=== PATIENT | female | born 1950 | race Caucasian/White ===

== ENCOUNTER 2017-03-23 05:21 | Inpatient (IN) ==
[2017-03-23] MEDS ORDERED: VANCOMYCIN INJ 1,000 MG in SODIUM CHLORIDE 0.9% 250 ML IV ONE (06:00)
[2017-03-23] MEDS ORDERED: VANCOMYCIN 1,000 MG VIAL ONE (06:25)
[2017-03-23] MEDS ORDERED: SODIUM CHLORIDE 0.9% 100 ML IV ONE ×2 (06:25→08:54)
[2017-03-23] MEDS ORDERED: ceFAZolin 1,000 MG VIAL ONE (06:25)
[2017-03-23] MEDS ORDERED: TRANEXAMIC ACID 1,000 MG/10 ML VIAL IV ONE (06:28)
[2017-03-23] MEDS: LACTATED RINGERS 1,000 ML IV SCH ×2 (06:30→21:25)
[2017-03-23] MEDS ORDERED: FAMOTIDINE 20 MG TABLET PO ONE (06:35)
[2017-03-23] MEDS ORDERED: LORazepam 1 MG TABLET PO ONE (06:35)
--- NOTE | 2017-03-23 06:51 | History and Physical Update ---
History and Physical Update - History and Physical H&P was reviewed, the patient examined and there: are no changes in the patients condition since last H&P was completed.
[2017-03-23] MEDS ORDERED: MORPHINE 10 MG/10 ML VIAL ONE (07:00)
[2017-03-23] MEDS ORDERED: diphenhydrAMINE 50 MG/1 ML VIAL IV PRN (07:56)
[2017-03-23] MEDS ORDERED: hydrOXYzine HCL 25 MG/1 ML VIAL IM PRN (07:56)
[2017-03-23] MEDS ORDERED: ONDANSETRON 4 MG/2 ML VIAL IV PRN (07:56)
[2017-03-23] MEDS ORDERED: HYDROmorphone 2 MG/1 ML VIAL IV PRN (07:56)
[2017-03-23] MEDS ORDERED: NALOXONE 0.4 MG/ML VIAL IV PRN (08:35)
[2017-03-23] MEDS ORDERED: LACTULOSE 20 GM/30 ML UDCUP PO PRN (08:35)
[2017-03-23] MEDS ORDERED: BISACODYL 10 MG SUPP RECTAL PRN (08:35)
[2017-03-23] MEDS ORDERED: diphenhydrAMINE CAP 25 MG CAPSULE PO PRN (08:35)
[2017-03-23] MEDS ORDERED: PROMETHAZINE 25 MG/1 ML VIAL IM PRN (08:35)
--- NOTE | 2017-03-23 08:48 | Anesthesia Post-Op ---
Anesthesia Post OP - Post Ansesthetic Evaluation Patient seen in post op: Yes Resp: within normal limits CV: within normal limits Mental: within normal limits Temp: within normal limits [id number]: within normal limits Nausea and Vomiting: within normal limits Pain: within normal limits
[2017-03-23] MEDS ORDERED: fentaNYL 100 MCG/2 ML VIAL ONE (08:52)
[2017-03-23] MEDS ORDERED: MIDAZOLAM 2 MG/2 ML VIAL ONE (08:53)
[2017-03-23] MEDS ORDERED: KETAMINE 500 MG/10 ML VIAL ONE (08:53)
[2017-03-23] MEDS ORDERED: LACTATED RINGERS 1,000 ML IV ONE (08:54)
--- NOTE | 2017-03-23 08:56 | XRay Report ---
XR hip OR LT Indication: Hip arthroplasty Comparison: None available Findings: Left hip arthroplasty has been performed and appears in good position 4 single view. No periprosthetic fracture is seen. Impression: Expected postoperative appearance of the left hip. PROCEDURE INTERPRETED AT [facility] DEPARTMENT OF RADIOLOGY Final Report Signed by: Dr. Thad Bedoya
[2017-03-23] MEDS ORDERED: HYDROmorphone PCA 30 MG/30 ML SYRINGE IV SCH (09:00)
[2017-03-23] MEDS: DOCUSATE SODIUM 100 MG CAPSULE PO SCH ×2 (09:00→21:24)
[2017-03-23] MEDS ORDERED: PROPOFOL 200 MG/20 ML VIAL IV ONE (09:00)
[2017-03-23] MEDS ORDERED: LABETALOL 100 MG/20 ML VIAL IV ONE (09:00)
[2017-03-23 09:01] LABS: Apearance,Urine CLEAR (Clear); Bilirubin,Urine Negative (Negative); Blood, Urine Negative (Negative); Glucose,Urine (UA) Negative (Negative); Ketones,Urine Negative (Negative); Mucus,Urine Occasional /LPF (Occasional); Nitrite,Urine Negative (Negative); Protein,Urine Negative; RBC,Urine <1 /HPF (0-4); Urine Color Yellow (Yellow); Urine Urobilinogen < 2.0 EU/DL (0.2-1.0); WBC,Urine <1 /HPF (0-6)
[2017-03-23] MEDS: ceFAZolin 2,000 MG in PREMIX 1 EACH IV SCH ×2 (11:38→20:28)
--- NOTE | 2017-03-23 12:24 | Pulmonology Consult Note ---
Assessment and Plan (1) Postop left hip replacement Status: Acute Assessment and plan: Patient did well with surgery. Been advised to get up and walk as soon as it recommended by the physical therapy staff. Will watch for complications. Current Visit: Yes (2) Degenerative arthritis Status: Acute Assessment and plan: Her arthritis was primarily in the left hip. Hopefully this will resolve it. Current Visit: Yes (3) Heart murmur Status: Acute Assessment and plan: She does have a systolic murmur in the left sternal border. She relates that she has had this ever since her children were born. I do not recall hearing it when I listened her 2 weeks ago. May just have cardiac output increased due to the state. She had a normal EKG. No signs of heart failure. Will wait and evaluate this later on. Current Visit: Yes History of Present Illness Chief complaint: Postop left hip replacement History of present illness: Ms. Viveros is a 66 year old female who had her left hip replaced this morning. I had seen her a couple of weeks ago for preoperative clearance and everything looked good. She has elevated cholesterol and takes a statin drug. She is on an antidepressant. She is a non-smoker. No history of any heart or lung disorders. She relates that her throat was a little sore this morning prior to surgery but is not sure now. Home Medications Medication Instructions Recorded Confirmed Type Escitalopram [Lexapro] 5 mg PO BEDTIME 03/18/17 03/23/17 History Hydrocodone/Acetaminophen 1 each PO Q6H PRN 03/18/17 03/23/17 History [Hydrocodon-Acetaminophen 5-325] Simvastatin [Zocor] 5 mg PO BEDTIME 03/18/17 03/23/17 History Allergies Allergy/AdvReac Type Severity Reaction Status Date / Time atorvastatin [From Lipitor] Allergy Severe Muscle Pain Verified 03/18/17 12:24 Shrimp AdvReac Intermediate Headache Verified 03/23/17 06:20 12 point system: reviewed and no additional remarkable complaints except as stated - EENT Nose, mouth and throat: Present: sore throat - Musculoskeletal Musculoskeletal: Present: arthralgias Exam (Pulmonay) H&P - Constitutional Vitals: Period Temp Pulse Resp BP Sys/Cosby Pulse Ox Last 24 Hr 97.0 F-98.4 F 61-81 14-18 116-157/58-85 95-100 Exam: Vital signs normal. Pupils react to light. Throat is clear. Neck supple no bruits. Chest is clear equal breath sounds. Heart normal rate rhythm with a grade 2/6 systolic murmur left sternal border. Abdomen soft nontender no masses. Extremities no clubbing cyanosis edema. Calves nontender. Brace on left leg. Bandage left hip. Medical,Surgical,& Family Hx - Medical History Neurology: No history of: Seizures HEENT: History of: Ear Problem, Eye Problem (GLASSES), Dental Problems (DENTURES ) Endocrine: History of: Dyslipidemia Musculoskeletal: History of: Herniated Disk (HX BULGING DISC BACK [facility]), Musculoskeletal Problems (OA L HIP) Reproductive: History of: Ovarian Cysts Other: No history of: Anesthesia Reactions - Surgical History HEENT Surgeries: Surgical HX of: Eye Surgery (CATARACTS), Tonsilectomy & Adenoidectomy Abdominal Surgeries: Surgical HX of: Appendectomy Reproductive Surgeries: Surgical HX of;: Hysterectomy, Tubal Ligation Orthopedic Surgeries: Surgical HX of;: Orthopedic Surgery, Total Hip Replacement (Left 03/20) - Family History Family History: Reports;: Family Cancer (DAD-colon) - Social History Smoking Status: Never smoker Frequency of Alcohol Use: None Type of Drug Use: None
--- NOTE | 2017-03-23 17:25 | Orthopedic Progress Note ---
Orthopedics - Subjective Interval history: Comfortable neurovascular intact discussed up in a.m. Exam - Constitutional Vitals: Period Temp Pulse Resp BP Sys/Cosby Pulse Ox Last 24 Hr 97.0 F-99.5 F 61-93 12-18 100-157/51-85 94-100
[2017-03-23] MEDS: FONDAPARINUX 2.5 MG/0.5 ML SYRINGE SUBCUT SCH (17:37)
--- NOTE | 2017-03-23 18:35 | Operative Note ---
DATE: 03/23/2017 PREOPERATIVE DIAGNOSIS: Osteoarthritis, left hip. POSTOPERATIVE DIAGNOSIS: Osteoarthritis, left hip. OPERATIVE PROCEDURE: Left total hip (S-ROM). SURGEON: Urbano Blanco Jr., MD. ROUGHER MACHINE OPERATOR: Leslie. ANESTHESIA: Spinal. INDICATION: A 66-year-old white female with worsening symptoms of pain, functional limitation relate d to her left hip arthritis. She is now requiring walking aid and has an unsteady gait. She is unab le to ambulate for any particular length of time, and has become less and less able to perform normal activities of daily living. She was felt to be a candidate for total hip, presenting today for elec tive procedure. PROCEDURE IN DETAIL: The patient was brought to the operative room and under spinal anesthetic, posi tioned in the right lateral decubitus position. The left hip and lower extremity were prepped and dr aped in the usual sterile manner. She received vancomycin and Ancef preoperatively. A curvilinear i ncision was made over the posterolateral aspect of the left hip. Sharp dissection was carried down t hrough the skin and subcutaneous tissue. The IT band and gluteus were split. The hip internally rot ated and short rotators and capsule were reflected off the back of the proximal femur. The hip was d islocated and the head resected. The acetabulum was exposed sequentially reamed up to a 51 and a 52 cup press-fit in place, secured with single screw and 10-degree all polyethylene liner placed. The p roximal femur was prepared for the S-ROM component ultimately selecting a sleeve measuring 16B large. The femoral stem was a +6 lateralized 16 x 11. Trial reduction selecting 0 head. After removal of the femoral components, the permanent S-ROM components were inserted in standard fashion and the 0 h ead secured, the hip relocated, stable, equalizing limb lengths. The wound was then irrigated. Hemo stasis verified and closed in standard fashion using #1 Vicryl for the posterior capsule and IT band layers, 2-0 Vicryl for subcutaneous layers, and bernadette for skin. Intraoperative film confirmed a sa tisfactory position of the implants. Sterile dressings were applied. She was rolled supine, abducti on pillow placed, taken to recovery room in stable condition.
[2017-03-23] MEDS: ESCITALOPRAM 10 MG TABLET PO SCH (21:24)
[2017-03-23] MEDS: SIMVASTATIN 10 MG TABLET PO SCH (21:25)
[2017-03-24] MEDS: LACTATED RINGERS 1,000 ML IV SCH ×2 (02:04→20:56)
[2017-03-24 05:58] LABS: Basophils % 0.3 % (0.0-0.8); Eosinophils # 0.1 10*3/uL (0.0-0.87); Eosinophils % 0.4 % (0.00-10.9); Hematocrit 31.3 VOL% (35.7-47.0); Hemoglobin 9.5 GM/DL (12.0-16.0); Immature Granulocytes % 0.9 %; Immature Granulocytes Absolute 0.12 #; Lymphocytes # 1.8 10*3/uL (1.4-4.0); Mean Corpuscular HGB Conc 30.4 GM/DL (32-36); Mean Corpuscular Hemoglobin 27 PG (27-34); Mean Corpuscular Volume 87.4 FL (87-102); Mean Platelet Volume 11.4 FL (9.6-12.0); Monocytes # 1.4 10*3/uL (0.11-0.8); Monocytes % 10.3 % (1.7-12.7); Neutrophils # 10.5 10*3/uL (1.4-7.4); Neutrophils % 75.1 % (38.7-73.9); Platelet Count 277 T/CUMM (130-400); Red Blood Count 3.58 MC/CUMM (3.8-5.5); Red Cell Distribution Width 14.7 % (9.3-17.3)
[2017-03-24 06:32] LABS: Calcium 8.2 MG/DL (8.5-10.1); Osmolality,Calculated 274.8 MOS/KG (273-304); Potassium 4.5 MMOL/L (3.5-5.1)
--- NOTE | 2017-03-24 08:29 | Orthopedic Progress Note ---
Orthopedics - Subjective Interval history: Comfortable H&H stable drain removed ready to start PT discharge planning Exam - Constitutional Vitals: Period Temp Pulse Resp BP Sys/Cosby Pulse Ox Last 24 Hr 97.0 F-99.5 F 61-99 12- 99-137/50-74 93-100 Results - Labs CBC & BMP: 03/24/17 05:36 03/24/17 05:36
[2017-03-24] MEDS: DOCUSATE SODIUM 100 MG CAPSULE PO SCH ×2 (09:24→20:54)
--- NOTE | 2017-03-24 10:06 | Pulmonology Progress Note ---
Pulmonary - PN: Subj Interval history: This 66-year-old lady had a left hip replacement yesterday. She is anxious to get up and walk. Not having any significant problems. Her pain is well controlled. Exam (Progress Note) - Constitutional Vitals: Period Temp Pulse Resp BP Sys/Cosby Pulse Ox Last 24 Hr 97.0 F-99.5 F 61-99 12-19 99-137/50-74 93-100 Exam: Patient's alert and oriented. Vital signs normal. Pupils react to light. Throat is clear. Neck supple no bruits. Chest reveals clear lungs. Heart normal rate and rhythm with a grade 1 to 2/6 systolic murmur at left sternal border. Abdomen soft nontender no masses. Extremities no clubbing cyanosis edema. Calves nontender. Sequential compression hose in place. Brace on left leg. Bandage on left hip. Results - Labs CBC & BMP: 03/24/17 05:36 03/24/17 05:36 Lab Results: I have reviewed the past 24 hour labs Assessment and Plan (1) Postop left hip replacement Status: Acute Assessment and plan: Patient did well with surgery. Been advised to get up and walk as soon as it recommended by the physical therapy staff. Will watch for complications. 03/24/2017 we will start physical therapy today. Current Visit: Yes (2) Degenerative arthritis Status: Acute Assessment and plan: Her arthritis was primarily in the left hip. Hopefully this will resolve it. Current Visit: Yes (3) Heart murmur Status: Acute Assessment and plan: She does have a systolic murmur in the left sternal border. She relates that she has had this ever since her children were born. I do not recall hearing it when I listened her 2 weeks ago. May just have cardiac output increased due to the state. She had a normal EKG. No signs of heart failure. Will wait and evaluate this later on. 03/24/2017 this can be evaluated later on in the office. She does not appear to have significant heart disease. She reports having had a murmur all her life Current Visit: Yes
--- NOTE | 2017-03-24 11:17 | Pathology Report from [facility] ---
[facility] [place] : [id number] PATIENT NAME : Chepe Viveros I. ORDERING DR : CYNDY GOODRICH JR, MD CLINICAL HX: LT hip osteoarthritis POST-OP DX: Same SPECIMEN INFO: LT femoral head GROSS DESCRIPTION: Received in formalin labeled CHEPE VIVEROS is a femoral head measuring 4.5 x 4.5 x 5.7 cm. The articular surface is focally degenerative with no subchondral eburnation seen. The cut surface is smooth with no softening appreciated. Received separately in the specimen container are multiple fragments of hemorrhagic bone and soft tissue measuring 6.0 x 1.0 cm in aggregate. Equipment Sales Specialist tissue is submitted in one cassette following decalcification. DIAGNOSIS FOR CHEPE VIVEROS: LEFT FEMORAL HEAD, TOTAL REPLACEMENT: Osteoarthritis. COLLECTED DATE: 03/23/2017 [facility] [place] DATE: 03/24/2017 ELECTRONICALLY SIGNED BY: Gogo Ivy M.D. 03/24/2017 - 10:21:07 LINN
[2017-03-24] MEDS: FONDAPARINUX 2.5 MG/0.5 ML SYRINGE SUBCUT SCH (18:07)
[2017-03-24] MEDS: ESCITALOPRAM 10 MG TABLET PO SCH (20:54)
[2017-03-24] MEDS: TEMAZEPAM 7.5 MG CAPSULE PO PRN (20:54)
[2017-03-24] MEDS: SIMVASTATIN 10 MG TABLET PO SCH (20:55)
[2017-03-25 05:13] LABS: Basophils % 0.3 % (0.0-0.8); Eosinophils # 0.1 10*3/uL (0.0-0.87); Eosinophils % 0.6 % (0.00-10.9); Hematocrit 29.8 VOL% (35.7-47.0); Hemoglobin 9.1 GM/DL (12.0-16.0); Immature Granulocytes % 0.7 %; Immature Granulocytes Absolute 0.09 #; Lymphocytes # 0.9 10*3/uL (1.4-4.0); Lymphocytes % 7.5 % (21.3-54.2); Mean Corpuscular HGB Conc 30.5 GM/DL (32-36); Mean Corpuscular Hemoglobin 26 PG (27-34); Mean Corpuscular Volume 86.1 FL (87-102); Mean Platelet Volume 11.6 FL (9.6-12.0); Neutrophils # 10.4 10*3/uL (1.4-7.4); Neutrophils % 82.9 % (38.7-73.9); Platelet Count 227 T/CUMM (130-400); Red Blood Count 3.46 MC/CUMM (3.8-5.5); Red Cell Distribution Width 14.6 % (9.3-17.3); White Blood Count 12.5 T/CUMM (4-12)
--- NOTE | 2017-03-25 07:47 | Orthopedic Progress Note ---
Orthopedics - Subjective Interval history: Complaining only of pain mobilizing fairly well with PT awaiting swing bed placement discussed. Exam - Constitutional Vitals: Period Temp Pulse Resp BP Sys/Cosby Pulse Ox Last 24 Hr 99.2 F-101.0 F 92-124 16-18 111-146/48-74 90-97 Results - Labs CBC & BMP: 03/25/17 04:55 03/24/17 05:36
--- NOTE | 2017-03-25 07:50 | Discharge Summary ---
Hospital Course - Hospital Course Hospital Course: Admitted for elective left total hip uncomplicated course discharged to rehab Diagnosis - Discharge Diagnosis (1) Osteoarthritis of left hip Status: Acute Discharge Plan - Discharge Data Disposition: Swing Bed, Hos Based, Mcr Les Condition at Discharge: Stable Discharge Diet: advance to your usual diet Activity: ambulate only with your walker, as per physical therapy, increase activity as tolerated Weight Bearing at Discharge: weight bear as tolerated Driving: not until seen by doctor - Discharge Medications New HYDROcodone/ACETAMIN 7.5-325 [[place] 7.5-325] 2 tablet PO Q4H PRN #30 tablet PRN Reason: Moderate Pain unrelieved by 1 Continue Hydrocodone/Acetaminophen [Hydrocodon-Acetaminophen 5-325] 1 each PO Q6H PRN PRN Reason: Pain Escitalopram [Lexapro] 5 mg PO BEDTIME Simvastatin [Zocor] 5 mg PO BEDTIME - Follow Up or Referral - Forms/Instructions Additional Discharge Instructions: Discharged to rehab swing bed. Continue home medications [place] for pain Arixtra 10 more days and switched to enteric- coated aspirin once daily. Advancing to weight-bear as tolerated with hip precautions bernadette to be removed and wound Steri-Stripped April 05. Follow-up with me 4 weeks Exam - Constitutional Vitals: Period Temp Pulse Resp BP Sys/Cosby Pulse Ox Last 24 Hr 99.2 F-101.0 F 92-124 16-18 111-146/48-74 90-97 Discharge Results Procedures and tests throughout hospitalization: Pending Orders 03/26/17 04:00 Comp Blood Count Auto Diff IN AM Labs on day of discharge: Labs from last 24 hours 03/25/17 04:55 WBC 12.5 H RBC 3.46 L Hgb 9.1 L Hct 29.8 L MCV 86.1 L MCH 26 L MCHC 30.5 L RDW 14.6 Plt Count 227 MPV 11.6 Neut % (Auto) 82.9 H Lymph % (Auto) 7.5 L Mcpherson % (Auto) 8.0 Eos % (Auto) 0.6 Baso % (Auto) 0.3 Neut # (Auto) 10.4 H Lymph # (Auto) 0.9 L Mcpherson # (Auto) 1.0 H Eos # (Auto) 0.1 Baso # (Auto) 0.0 Immature Gran % 0.7 Nucleated RBC % 0.0 Immature Gran # 0.09 Nucleated RBCs # 0.00 DS: Provider Date of admission: 03/23/17 05:21 Primary care physician: Graham Pierson MD Attending physician on admission: Urbano Blanco Jr., MD Consults: 03/23/17 08:36 Consult to Case Mgmt/Social Srvs [CONS] Routine Reason for Case Mgmt/Social Srvs: Rehab Home Health Equipment Consult Comment: Bedside Commode, CPM, Walker Consult to Occupational Therapy [CONS] Routine Reason for Occupational Therapy: Evaluate and Treat Consult Comment: ADL's Consult to Physical Therapy [CONS] Routine Reason for Physical Therapy: Evaluate and Treat Gait Training Consult Comment: Advance WBAT left with hip precautions 03/23/17 08:38 Consult to Physician [CONS] Routine Comment: Consulting Provider: Bryan Cassidy Consulting Provider Notified: Yes When should Consulting Provider be notified: Now Person Notified: Venus pal Date Notified: 03/23/17 Time Notified: 10:20 03/24/17 13:42 Consult to Case Mgmt/Social Srvs [CONS] Routine Reason for Case Mgmt/Social Srvs: Equipment Consult Comment: bedside commode Discharging clinician: Urbano Blanco Jr., MD
[2017-03-25] MEDS: DOCUSATE SODIUM 100 MG CAPSULE PO SCH ×2 (09:10→20:37)
[2017-03-25] MEDS: MAGNESIUM HYDROXIDE SUSP 30 ML UDCUP PO PRN ×2 (09:10→20:38)
--- NOTE | 2017-03-25 09:52 | Pulmonology Progress Note ---
Pulmonary - PN: Subj Interval history: This 66-year-old lady had a left hip replacement yesterday. She is anxious to get up and walk. Not having any significant problems. Her pain is well controlled. 03/25/2017 patient participating in physical therapy. Sitting up in a chair at present. Plans are for her to go to a swing bed for further rehab. She had some fever yesterday. Just had her Wylie catheter removed. We will check a urinalysis and culture. Her calves are nontender. She is not having any coughing. Exam (Progress Note) - Constitutional Vitals: Period Temp Pulse Resp BP Sys/Cosby Pulse Ox Last 24 Hr 99.2 F-101.0 F 92-124 16-18 111-146/48-74 90-97 Exam: Patient's alert and oriented. Vital signs normal. Pupils react to light. Throat is clear. Neck supple no bruits. Chest reveals clear lungs. Heart normal rate and rhythm with a grade 1 to 2/6 systolic murmur at left sternal border. Abdomen soft nontender no masses. Extremities no clubbing cyanosis edema. Calves nontender. Bandage on left hip. Results - Labs CBC & BMP: 03/25/17 04:55 03/24/17 05:36 Lab Results: I have reviewed the past 24 hour labs Assessment and Plan (1) Postop left hip replacement Status: Acute Assessment and plan: Patient did well with surgery. Been advised to get up and walk as soon as it recommended by the physical therapy staff. Will watch for complications. 03/24/2017 we will start physical therapy today. 03/25/2017 doing well except for low-grade fever. Will check urine. Wylie pulled. Current Visit: Yes (2) Degenerative arthritis Status: Acute Assessment and plan: Her arthritis was primarily in the left hip. Hopefully this will resolve it. Current Visit: Yes (3) Heart murmur Status: Acute Assessment and plan: She does have a systolic murmur in the left sternal border. She relates that she has had this ever since her children were born. I do not recall hearing it when I listened her 2 weeks ago. May just have cardiac output increased due to the state. She had a normal EKG. No signs of heart failure. Will wait and evaluate this later on. 03/24/2017 this can be evaluated later on in the office. She does not appear to have significant heart disease. She reports having had a murmur all her life 03/25/2017 this is unchanged. Current Visit: Yes
[2017-03-25 15:55] LABS: Apearance,Urine CLEAR (Clear); Bacteria,Urine Occasional /HPF (Few); Bilirubin,Urine Negative (Negative); Blood, Urine Moderate mg/dL (Negative); Glucose,Urine (UA) Negative (Negative); Ketones,Urine Negative (Negative); Mucus,Urine Occasional /LPF (Occasional); Nitrite,Urine Negative (Negative); Protein,Urine Negative; RBC,Urine 6 /HPF (0-4); Squamous Epithelial Cell,Urine Occasional /HPF (0-10); Urine Color Yellow (Yellow); Urine Specific Gravity 1.006 (1.001-1.035); Urine Urobilinogen < 2.0 EU/DL (0.2-1.0); WBC,Urine 2 /HPF (0-6)
[2017-03-25] MEDS: FONDAPARINUX 2.5 MG/0.5 ML SYRINGE SUBCUT SCH (18:18)
[2017-03-25] MEDS: TEMAZEPAM 7.5 MG CAPSULE PO PRN (20:37)
[2017-03-25] MEDS: ESCITALOPRAM 10 MG TABLET PO SCH (20:38)
[2017-03-25] MEDS: SIMVASTATIN 10 MG TABLET PO SCH (20:38)
--- NOTE | 2017-03-26 07:24 | Orthopedic Progress Note ---
Orthopedics - Subjective Interval history: Ms. Viveros is doing very well. She was able to walk in the meneses yesterday. Dressing clean, dry and intact. Left lower extremities neurovascular change. Plan: Discharge to swing bed when bed available. Exam - Constitutional Vitals: Period Temp Pulse Resp BP Sys/Cosby Pulse Ox Last 24 Hr 96.8 F-100.2 F 88-101 16-18 105-140/55-77 93-96 Results - Labs CBC & BMP: 03/25/17 04:55 03/24/17 05:36
[2017-03-26] MEDS: DOCUSATE SODIUM 100 MG CAPSULE PO SCH (08:59)
--- NOTE | 2017-03-26 10:00 | Event Note ---
Patient is going to a swing bed today. Stable from a pulmonary and medical standpoint. Please call if needed further. Vital signs are all normal.
[2017-03-26 11:35] VITALS: BP 124/72
== END 2017-03-26 12:00 | disposition swing bed (61) | DRG 470 ==
LOC: N.SDSINP 05:21 → N.3E 09:39
PROVIDERS: ADMIT Orthopaedic Surgery; ATTEND Orthopaedic Surgery

== ENCOUNTER 2019-04-28 22:04 | Observation (INO) ==
[2019-04-28] MEDS ORDERED: ASPIRIN EC 325 MG TABLET PO STA (22:27)
[2019-04-28] MEDS ORDERED: NITROGLYCERIN 2% OINT 1 INCH/GM PACK TOP STA (22:27)
[2019-04-28 23:00] LABS: Basophils # 0.1 10*3/uL (0.0-0.2); Basophils % 0.8 % (0.0-0.8); Eosinophils # 0.2 10*3/uL (0.0-0.87); Hemoglobin 9.2 GM/DL (12.0-16.0); Immature Granulocytes % 0.4 %; Immature Granulocytes Absolute 0.04 #; Lymphocytes # 2.4 10*3/uL (1.4-4.0); Lymphocytes % 23.7 % (21.3-54.2); Mean Corpuscular HGB Conc 28.8 GM/DL (32-36); Mean Corpuscular Volume 84.2 FL (87-102); Mean Platelet Volume 12.4 FL (9.6-12.0); Monocytes % 9.3 % (1.7-12.7); Neutrophils % 63.8 % (38.7-73.9); Platelet Count 285 T/CUMM (130-400); Red Cell Distribution Width 15.4 % (9.3-17.3); White Blood Count 10.2 T/CUMM (4-12)
[2019-04-28 23:35] LABS: Alanine Aminotransferase 15 U/L (13-56); Albumin 3.5 G/DL (3.4-5.0); Alkaline Phosphatase 96 U/L (45-117); Aspartate Amino Transferase 18 U/L (0-37); Bilirubin,Total < 0.39 MG/DL (0.2-1.0); Blood Urea Nitrogen 17 MG/DL (7-18); Calcium 8.5 MG/DL (8.5-10.1); Glucose 84 MG/DL (74-106); Osmolality,Calculated 281.3 MOS/KG (273-304); Total Protein 6.9 G/DL (6.4-8.3)
[2019-04-28 23:46] LABS: Hypochromasia 1+
[2019-04-28 23:47] LABS: Platelet Estimate Normal
[2019-04-29 00:24] LABS: INR 0.9; PT Patient Result 9.9 SECS; Partial Thromboplastin Time 26.3 SECS (0-40)
[2019-04-29] MEDS ORDERED: ONDANSETRON 4 MG/2 ML VIAL IV PRN (01:38)
[2019-04-29] MEDS ORDERED: NITROGLYCERIN SL 0.4 MG TABLET SL PRN (01:38)
[2019-04-29] MEDS ORDERED: MORPHINE 4 MG/1 ML VIAL IV PRN (01:38)
[2019-04-29] MEDS ORDERED: BISACODYL 5 MG TABLET PO PRN (01:38)
[2019-04-29] MEDS ORDERED: PROMETHAZINE 25 MG/1 ML VIAL IM PRN (01:38)
[2019-04-29] MEDS ORDERED: ACETAMINOPHEN 325 MG TABLET PO PRN (01:38)
[2019-04-29] MEDS ORDERED: NICOTINE 21 MG/24 HR PATCH TRANSDERM PRN (01:38)
[2019-04-29] MEDS ORDERED: diphenhydrAMINE CAP 25 MG CAPSULE PO PRN (01:38)
[2019-04-29] MEDS ORDERED: guaiFENesin/DM ER 600-30 MG TABLET PO PRN (01:38)
[2019-04-29 07:06] LABS: Basophils # 0.1 10*3/uL (0.0-0.2); Basophils % 0.8 % (0.0-0.8); Eosinophils % 0.4 % (0.00-10.9); Hematocrit 29.4 VOL% (35.7-47.0); Hemoglobin 8.8 GM/DL (12.0-16.0); Immature Granulocytes % 0.4 %; Immature Granulocytes Absolute 0.04 #; Lymphocytes # 1.5 10*3/uL (1.4-4.0); Lymphocytes % 15.4 % (21.3-54.2); Mean Corpuscular HGB Conc 29.9 GM/DL (32-36); Mean Corpuscular Volume 83.1 FL (87-102); Mean Platelet Volume 12.5 FL (9.6-12.0); Monocytes % 6.2 % (1.7-12.7); Neutrophils % 76.8 % (38.7-73.9); Platelet Count 243 T/CUMM (130-400); Red Blood Count 3.54 MC/CUMM (3.8-5.5); Red Cell Distribution Width 15.4 % (9.3-17.3); White Blood Count 9.8 T/CUMM (4-12)
[2019-04-29 07:12] LABS: Platelet Estimate Normal
[2019-04-29 07:13] LABS: Anisocytosis 1+
[2019-04-29 07:17] LABS: Albumin 3.2 G/DL (3.4-5.0); Bilirubin,Total 0.4 MG/DL (0.2-1.0); Calcium 8.6 MG/DL (8.5-10.1); Osmolality,Calculated 280.3 MOS/KG (273-304); Total Protein 6.8 G/DL (6.4-8.3)
[2019-04-29 07:37] LABS: Risk Ratio 2.56; Thyroid Stimulating Hormone 2.59 uIU/ml (0.358-3.74); VLDL CHOLESTEROL 21.8 MG/DL
[2019-04-29] MEDS ORDERED: ASPIRIN 325 MG TABLET PO SCH (09:00)
[2019-04-29] MEDS ORDERED: PANTOPRAZOLE 40 MG TABLET PO SCH (09:00)
[2019-04-29 16:33] VITALS: BP 132/65
[2019-04-29] MEDS ORDERED: SIMVASTATIN 10 MG TABLET PO SCH (21:00)
== END 2019-04-29 16:35 | disposition home or self-care (01) ==
LOC: N.ED 22:04 → N.EDINP 22:04 → SUATTDRO 04-29 01:38 → N.5E 04-29 03:23
PROVIDERS: ADMIT Internal Medicine; ATTEND Phlebology